=== PATIENT | female | born 1960 | race Caucasian/White ===

== ENCOUNTER 2017-01-29 21:58 | Emergency (ER) | payer MEDICARE, OTHER ==
--- NOTE | ~2017-01-29 | CR72 ---
[facility] A Service of [facility] & [facility] RADIOLOGY TEXT RESULTS PATIENT: CARINA ROMERO LOCATION: [facility] : 60 UNIT #: [id number] AGE: [address]: Doug Aquino MD SEX: F ORDER DR: [id number] [facility] [address] [place], [place] [address] [id number] MR#: [id number] Acc #: [id number] NAME: CARINA ROMERO. : 1960 SEX: F STUDY DATE/TIME: 01/29/2017 22:46 UNIT: [facility] ROOM: STUDY DESCRIPTION: CR Chest Single View Portable Attending Physician: Doug Aquino M.D. Ordering Physician: Doug Aquino M.D. Primary Care Physician: Primary Care Physician No MEDICAL IMAGING REPORT This report is preliminary unless electronic signature is present EXAM Frontal chest, 01/29/2017 INDICATIONS Weakness and hypoglycemia in a 57-year-old female. Symptoms began today. Hypertension. TECHNIQUE Frontal chest compared with 07/02/2006. FINDINGS Cardiac silhouette is within normal limits. The vascularity is unremarkable. Lungs are clear, no pneumothorax. IMPRESSION 1. Negative frontal chest. Dictated by... Jarod Cruz M.D. THIS IS AN ELECTRONICALLY VERIFIED REPORT Jarod Cruz M.D. at 01/30/2017 2:37 PM SARA/shwetha TD: 01/30/2017 00:23 JOB #: [id number] MEDICAL IMAGING REPORT Page 1 of 1 COPY
--- NOTE | ~2017-01-29 | EKG ---
PATIENT: CARINA ROMERO UNIT #: [id number] Ventricular Rate: 69 BPM Atrial Rate: 69 BPM P-R Interval: 142 ms QRS Duration: 84 ms Q-T Interval: 422 ms QTC Calculation(Bezet): 452 ms P Walls: 76 degrees Calculated R Walls: 53 degrees Calculated T Walls: 60 degrees Diagnosis Line: Normal sinus rhythm Diagnosis Line: Low voltage QRS Diagnosis Line: Borderline ECG Diagnosis Line: No previous ECGs available Diagnosis Line: Confirmed by MOE THEODORE MD ([id number]) on Diagnosis Line: 01/31/2017 7:58:11 AM INTERPRETING MD: ARBEN WOLFE
[2017-01-29 23:35] LABS: BASOPHIL# 0.1 X10e3 (0-0.3); BASOPHIL% 0.5 % (0-2.5); EOSINOPHIL# 0.6 X10e3 (0-0.7); EOSINOPHIL% 5.5 % (0.0-7.0); HEMATOCRIT 34.8 % (35.0-45.0); HEMOGLOBIN 11.1 gm/dL (12.0-16.0); LYMPHOCYTE# 1.3 X10e3 (1.0-3.5); LYMPHOCYTE% 11.4 % (17.0-45.0); MEAN CELL VOLUME 90.4 FL (83-96); MEAN CORPUSCULAR HEMOGLOBIN 28.8 PG (28-34); MEAN CORPUSCULAR HGB CONC 31.9 g/dL (30-36); MEAN PLATELET VOLUME 8.4 FL (6.5-11.5); MONOCYTE# 1.2 X10e3 (0-1.0); MONOCYTE% 10.3 % (3.0-12.0); NEUTROPHIL# 8.3 X10e3 (1.5-7.1); NEUTROPHIL% 72.3 % (40-75); PLATELET COUNT 296 X10e3 (140-420); RED BLOOD COUNT 3.85 X10e (3.90-5.30); RED CELL DISTRIBUTION WIDTH 15.1 % (11.0-15.5); WHITE BLOOD COUNT 11.5 X10e3 (4.0-10.5)
[2017-01-29 23:37] LABS: DIFF IND NO
[2017-01-30] LABS: BUN/CREATININE RATIO 20.83; CALCIUM SERUM 8.6 mg/dL (8.4-10.2); CREATININE SERUM 1.2 mg/dL (0.6-1.4); GLOM FILT RATE Estimated 50.1 mL/min (>60)
[2017-01-30 00:06] LABS: URINE SOURCE CLEAN CATCH
[2017-01-30 00:09] LABS: URINE APPEARANCE CLEAR; URINE BILIRUBIN NEG (NEG); URINE BLOOD NEG (NEG); URINE COLOR YELLOW; URINE GLUCOSE 250 MG/DL (NEG); URINE KETONE NEG (NEG); URINE LEUKOCYTE ESTERASE NEG (NEG); URINE NITRATE NEG (NEG); URINE PH 6.5 (5-8); URINE PROTEIN NEG (NEG); URINE UROBILINOGEN 0.2 MG/DL (NEG)
[2017-01-30 00:17] LABS: CULTURE INDICATED? NO
== END 2017-01-30 01:00 | disposition home or self-care (01) ==
LOC: CED 21:58 → SED 22:44 → CED 01-30 01:00
PROVIDERS: Emergency Medicine
DX: E10.649 Type 1 diabetes mellitus with hypoglycemia without coma (principal); Z88.1 Allergy status to other antibiotic agents
CPT/HCPCS: 36415; 71010; 80048; 81003; 82947; 84703; 85025; 93005; 99285